=== PATIENT | male | born 1965 | race American Indian/Alaskan Native ===

== ENCOUNTER 2020-02-06 09:54 | Inpatient (IN) | payer OTHER ==
[2020-02-06] MEDS ORDERED: NALOXONE 2 MG/2 ML INJ ONE (09:59)
[2020-02-06] MEDS ORDERED: NALOXONE 2 MG/2 ML INJ IV ONE (09:59)
[2020-02-06] MEDS ORDERED: ONDANSETRON 4 MG/2 ML INJ IV ONE (10:00)
[2020-02-06] MEDS ORDERED: ONDANSETRON 4 MG/2 ML INJ ONE (10:01)
[2020-02-06] MEDS ORDERED: LORazepam 2 MG/ML VIAL IV ONE (10:04)
[2020-02-06] MEDS ORDERED: LORazepam 2 MG/ML VIAL ONE (10:04)
[2020-02-06] MEDS ORDERED: SODIUM CHLORIDE 0.9% 1000 ML 1,000 ML IV ONE (10:10)
[2020-02-06] MEDS ORDERED: NALOXONE 2 MG/2 ML 2 MG in SODIUM CHLORIDE 0.9% 500 ML 500 ML IV ONE (10:12)
--- NOTE | 2020-02-06 10:17 | Emergency Department Report ---
ED Altered Mental Status HPI - General Chief Complaint: Altered Mental Status Stated Complaint: UNRESPONSIVE Time Seen by Provider: 02/06/20 10:10 Source: EMS Mode of arrival: Stretcher Limitations: Altered Mental Status - History of Present Illness Initial Comments: Patient is unknown age, unknown past medical history. Patient brought to the emergency room via EMS from a crack house after his friend called and stated that he is not responding to them. EMS stated that upon arrival to the area patient found unresponsive and breathing approximately 3 breaths/min, unresponsive to voice or painful stimuli. EMS immediately start doing positive pressure ventilation and patient given 2 mg of Narcan IM immediately with little improvement. Upon arrival to the ER patient is obtunded and breathing approximately 5 breaths/min. Patient immediately given 2 mg of Narcan IV and patient immediately start working up and became more agitated. Patient given Ativan for sedation. Patient oxygen saturation improved to 96% on nonrebreather. Patient started on Narcan drip. MD Complaint: altered mental status, decreased responsiveness, intoxication -: unknown Severity: severe Context: drug abuse Treatments Prior to Arrival: IV fluid - Related Data Allergies Allergy/AdvReac Type Severity Reaction Status Date / Time No Known Allergies Allergy Verified 02/06/20 14:12 ED Review of Systems ROS: Stated complaint: UNRESPONSIVE Other details as noted in HPI Comment: Unobtainable due to pts medical conditions ED Past Medical Hx - Past Medical History Additional medical history: unknown - Surgical History Additional Surgical History: unknown - Social History Smoking Status: Unknown if ever smoked ED Physical Exam - General Limitations: Altered Mental Status General appearance: obtunded - Head Head exam: Present: atraumatic, normocephalic, normal inspection - Eye Pupils: Present: other (2 mm and reactive.) - ENT ENT exam: Present: mucous membranes dry - Neck Neck exam: Present: normal inspection - Respiratory Respiratory exam: Present: normal lung sounds bilaterally - Cardiovascular Cardiovascular Exam: Present: regular rate, normal rhythm, normal heart sounds - GI/Abdominal GI/Abdominal exam: Present: soft. Absent: distended, tenderness, guarding - Extremities Exam Extremities exam: Present: normal inspection, full ROM, normal capillary refill - Neurological Exam Neurological exam: Present: altered - Skin Skin exam: Present: warm, dry, intact ED Course Vital Signs 02/06/20 02/06/20 02/06/20 09:55 09:58 10:00 Temperature Pulse Rate 95 H 90 Respiratory 12 Rate Blood Pressure 133/87 133/87 O2 Sat by Pulse 87 93 Oximetry 02/06/20 02/06/20 02/06/20 10:16 10:18 10:30 Temperature 93.0 F L Pulse Rate 81 Respiratory 11 L Rate Blood Pressure 133/87 112/70 O2 Sat by Pulse 97 98 Oximetry 02/06/20 02/06/20 02/06/20 10:47 11:00 11:16 Temperature Pulse Rate 85 86 85 Respiratory 9 L 11 L 10 L Rate Blood Pressure 80/52 95/55 O2 Sat by Pulse 95 95 97 Oximetry 02/06/20 02/06/20 02/06/20 11:30 11:45 12:10 Temperature Pulse Rate 86 86 83 Respiratory 10 L 13 12 Rate Blood Pressure 87/58 95/62 95/62 O2 Sat by Pulse 98 97 Oximetry 02/06/20 02/06/20 02/06/20 12:16 12:30 12:45 Temperature 97.1 F L Pulse Rate 84 83 84 Respiratory 7 L 9 L 10 L Rate Blood Pressure 95/62 89/53 85/57 O2 Sat by Pulse 96 Oximetry 02/06/20 02/06/20 02/06/20 13:00 13:15 13:30 Temperature Pulse Rate 82 81 82 Respiratory 11 L 11 L 11 L Rate Blood Pressure 82/57 85/54 93/56 O2 Sat by Pulse 96 96 97 Oximetry 02/06/20 13:45 Temperature Pulse Rate 81 Respiratory 12 Rate Blood Pressure 84/55 O2 Sat by Pulse 99 Oximetry - Consultations Consultation #1: 02/06/20 14:34 I discussed the patient with Shi Calderon, with Dr. Green, churn tender. She stated that she is coming to evaluate the patient. 02/06/20 14:34 - Lab Data Result diagrams: 02/06/20 13:51 02/06/20 10:54 Lab Results 02/06/20 02/06/20 02/06/20 Range/Units 10:54 10:54 10:54 WBC 20.0 H (4.5-11.0) K/mm3 RBC 4.36 (3.65-5.03) M/mm3 Hgb 11.9 (11.8-15.2) gm/dl Hct 38.0 (35.5-45.6) % MCV 87 (84-94) fl MCH 27 L (28-32) pg MCHC 31 L (32-34) % RDW 24.8 H (13.2-15.2) % Plt Count 338 (140-440) K/mm3 Add Manual Diff Complete Total Counted 100 Seg Neutrophils % Turning Machine Operator Seg Neuts % (Manual) 87.0 H (40.0-70.0) % Band Neutrophils % 6.0 % Lymphocytes % (Manual) 2.0 L (13.4-35.0) % Reactive Lymphs % (Man) 0 % Monocytes % (Manual) 5.0 (0.0-7.3) % Eosinophils % (Manual) 0 (0.0-4.3) % Basophils % (Manual) 0 (0.0-1.8) % Metamyelocytes % 0 % Myelocytes % 0 % Promyelocytes % 0 % Blast Cells % 0 % Nucleated RBC % Not Reportable Seg Neutrophils # Man 17.4 H (1.8-7.7) K/mm3 Band Neutrophils # 1.2 K/mm3 Lymphocytes # (Manual) 0.4 L (1.2-5.4) K/mm3 Abs React Lymphs (Man) 0.0 K/mm3 Monocytes # (Manual) 1.0 H (0.0-0.8) K/mm3 Eosinophils # (Manual) 0.0 (0.0-0.4) K/mm3 Basophils # (Manual) 0.0 (0.0-0.1) K/mm3 Metamyelocytes # 0.0 K/mm3 Myelocytes # 0.0 K/mm3 Promyelocytes # 0.0 K/mm3 Blast Cells # 0.0 K/mm3 WBC Morphology Not Reportable Hypersegmented Neuts Not Reportable Hyposegmented Neuts Not Reportable Hypogranular Neuts Not Reportable Smudge Cells Not Reportable Toxic Granulation Not Reportable Toxic Vacuolation Not Reportable Dohle Bodies Not Reportable Pelger-Huet Anomaly Not Reportable Zakia Rods Not Reportable Platelet Estimate Consistent w auto Clumped Platelets Not Reportable Plt Clumps, EDTA Not Reportable Large Platelets Not Reportable Giant Platelets Not Reportable Platelet Satelliting Not Reportable Plt Morphology Comment Not Reportable RBC Morphology Not Reportable Dimorphic RBCs Not Reportable Polychromasia Not Reportable Hypochromasia Not Reportable Poikilocytosis Not Reportable Anisocytosis 2+ Microcytosis 1+ Macrocytosis Not Reportable Spherocytes Not Reportable Pappenheimer Bodies Not Reportable Sickle Cells Not Reportable Target Cells Not Reportable Tear Drop Cells Not Reportable Ovalocytes Not Reportable Helmet Cells Not Reportable [place] Bodies Not Reportable [place] Rings Not Reportable Caro Cells Not Reportable Bite Cells Not Reportable Crenated Cell Not Reportable Elliptocytes Not Reportable Acanthocytes (Spur) Not Reportable Rouleaux Not Reportable Hemoglobin C Crystals Not Reportable Schistocytes Not Reportable Malaria parasites Not Reportable Yevgeniy Bodies Not Reportable Hem Pathologist Commnt No APTT 30.3 (24.2-36.6) Sec. Sodium 139 (137-145) mmol/L Potassium 6.0 H (3.6-5.0) mmol/L Chloride 101.9 (98-107) mmol/L Carbon Dioxide 23 (22-30) mmol/L Anion Gap 20 mmol/L BUN 29 H (9-20) mg/dL Creatinine 1.3 (0.8-1.5) mg/dL Estimated GFR 49 ml/min BUN/Creatinine Ratio 22 % Glucose 95 (75-100) mg/dL Lactic Acid (0.7-2.0) mmol/L Calcium 8.4 (8.4-10.2) mg/dL Total Bilirubin 0.50 (0.1-1.2) mg/dL AST 244 H (5-40) units/L ALT 195 H (7-56) units/L Alkaline Phosphatase 90 (35-129) units/L Ammonia (25-60) umol/L Troponin T 0.156 H* (0.00-0.029) ng/mL Total Protein 7.1 (6.3-8.2) g/dL Albumin 3.8 L (3.9-5) g/dL Albumin/Globulin Ratio 1.2 % Triglycerides 40 (2-149) mg/dL Cholesterol 184 (50-199) mg/dL LDL Cholesterol Direct 105 (50-130) mg/dL HDL Cholesterol 85 H (40-59) mg/dL Cholesterol/HDL Ratio 2.16 % Salicylates (2.8-20.0) mg/dL Acetaminophen (10.0-30.0) ug/mL Plasma/Serum Alcohol (0-0.07) % 02/06/20 02/06/20 02/06/20 Range/Units 10:54 10:54 10:54 WBC (4.5-11.0) K/mm3 RBC (3.65-5.03) M/mm3 Hgb (11.8-15.2) gm/dl Hct (35.5-45.6) % MCV (84-94) fl MCH (28-32) pg MCHC (32-34) % RDW (13.2-15.2) % Plt Count (140-440) K/mm3 Add Manual Diff Total Counted Seg Neutrophils % Seg Neuts % (Manual) (40.0-70.0) % Band Neutrophils % % Lymphocytes % (Manual) (13.4-35.0) % Reactive Lymphs % (Man) % Monocytes % (Manual) (0.0-7.3) % Eosinophils % (Manual) (0.0-4.3) % Basophils % (Manual) (0.0-1.8) % Metamyelocytes % % Myelocytes % % Promyelocytes % % Blast Cells % % Nucleated RBC % Seg Neutrophils # Man (1.8-7.7) K/mm3 Band Neutrophils # K/mm3 Lymphocytes # (Manual) (1.2-5.4) K/mm3 Abs React Lymphs (Man) K/mm3 Monocytes # (Manual) (0.0-0.8) K/mm3 Eosinophils # (Manual) (0.0-0.4) K/mm3 Basophils # (Manual) (0.0-0.1) K/mm3 Metamyelocytes # K/mm3 Myelocytes # K/mm3 Promyelocytes # K/mm3 Blast Cells # K/mm3 WBC Morphology Hypersegmented Neuts Hyposegmented Neuts Hypogranular Neuts Smudge Cells Toxic Granulation Toxic Vacuolation Dohle Bodies Pelger-Huet Anomaly [place] Rods Platelet Estimate Clumped Platelets Plt Clumps, EDTA Large Platelets Giant Platelets Platelet Satelliting Plt Morphology Comment RBC Morphology Dimorphic RBCs Polychromasia Hypochromasia Poikilocytosis Anisocytosis Microcytosis Macrocytosis Spherocytes Pappenheimer Bodies Sickle Cells Target Cells Tear Drop Cells Ovalocytes Helmet Cells [place] Bodies [place] Rings [place] Cells Bite Cells Crenated Cell Elliptocytes Acanthocytes (Spur) Rouleaux Hemoglobin C Crystals Schistocytes Malaria parasites Yevgeniy Bodies Hem Pathologist Commnt APTT (24.2-36.6) Sec. Sodium (137-145) mmol/L Potassium (3.6-5.0) mmol/L Chloride (98-107) mmol/L Carbon Dioxide (22-30) mmol/L Anion Gap mmol/L BUN (9-20) mg/dL Creatinine (0.8-1.5) mg/dL Estimated GFR ml/min BUN/Creatinine Ratio % Glucose (75-100) mg/dL Lactic Acid 3.60 H* (0.7-2.0) mmol/L Calcium (8.4-10.2) mg/dL Total Bilirubin (0.1-1.2) mg/dL AST (5-40) units/L ALT (7-56) units/L Alkaline Phosphatase (35-129) units/L Ammonia 41.0 (25-60) umol/L Troponin T (0.00-0.029) ng/mL Total Protein (6.3-8.2) g/dL Albumin (3.9-5) g/dL Albumin/Globulin Ratio % Triglycerides (2-149) mg/dL Cholesterol (50-199) mg/dL LDL Cholesterol Direct (50-130) mg/dL HDL Cholesterol (40-59) mg/dL Cholesterol/HDL Ratio % Salicylates < 0.3 L (2.8-20.0) mg/dL Acetaminophen (10.0-30.0) ug/mL Plasma/Serum Alcohol (0-0.07) % 02/06/20 02/06/20 02/06/20 Range/Units 10:54 10:54 13:17 WBC (4.5-11.0) K/mm3 RBC (3.65-5.03) M/mm3 Hgb (11.8-15.2) gm/dl Hct (35.5-45.6) % MCV (84-94) fl MCH (28-32) pg MCHC (32-34) % RDW (13.2-15.2) % Plt Count (140-440) K/mm3 Add Manual Diff Total Counted Seg Neutrophils % Seg Neuts % (Manual) (40.0-70.0) % Band Neutrophils % % Lymphocytes % (Manual) (13.4-35.0) % Reactive Lymphs % (Man) % Monocytes % (Manual) (0.0-7.3) % Eosinophils % (Manual) (0.0-4.3) % Basophils % (Manual) (0.0-1.8) % Metamyelocytes % % Myelocytes % % Promyelocytes % % Blast Cells % % Nucleated RBC % Seg Neutrophils # Man (1.8-7.7) K/mm3 Band Neutrophils # K/mm3 Lymphocytes # (Manual) (1.2-5.4) K/mm3 Abs React Lymphs (Man) K/mm3 Monocytes # (Manual) (0.0-0.8) K/mm3 Eosinophils # (Manual) (0.0-0.4) K/mm3 Basophils # (Manual) (0.0-0.1) K/mm3 Metamyelocytes # K/mm3 Myelocytes # K/mm3 Promyelocytes # K/mm3 Blast Cells # K/mm3 WBC Morphology Hypersegmented Neuts Hyposegmented Neuts Hypogranular Neuts Smudge Cells Toxic Granulation Toxic Vacuolation Dohle Bodies Pelger-Huet Anomaly Zakia Rods Platelet Estimate Clumped Platelets Plt Clumps, EDTA Large Platelets Giant Platelets Platelet Satelliting Plt Morphology Comment RBC Morphology Dimorphic RBCs Polychromasia Hypochromasia Poikilocytosis Anisocytosis Microcytosis Macrocytosis Spherocytes Pappenheimer Bodies Sickle Cells Target Cells Tear Drop Cells Ovalocytes Helmet Cells [place] Bodies [place] Rings Caro Cells Bite Cells Crenated Cell Elliptocytes Acanthocytes (Spur) Rouleaux Hemoglobin C Crystals Schistocytes Malaria parasites Yevgeniy Bodies Hem Pathologist Commnt APTT (24.2-36.6) Sec. Sodium (137-145) mmol/L Potassium (3.6-5.0) mmol/L Chloride (98-107) mmol/L Carbon Dioxide (22-30) mmol/L Anion Gap mmol/L BUN (9-20) mg/dL Creatinine (0.8-1.5) mg/dL Estimated GFR ml/min BUN/Creatinine Ratio % Glucose (75-100) mg/dL Lactic Acid 1.00 (0.7-2.0) mmol/L Calcium (8.4-10.2) mg/dL Total Bilirubin (0.1-1.2) mg/dL AST (5-40) units/L ALT (7-56) units/L Alkaline Phosphatase (35-129) units/L Ammonia (25-60) umol/L Troponin T (0.00-0.029) ng/mL Total Protein (6.3-8.2) g/dL Albumin (3.9-5) g/dL Albumin/Globulin Ratio % Triglycerides (2-149) mg/dL Cholesterol (50-199) mg/dL LDL Cholesterol Direct (50-130) mg/dL HDL Cholesterol (40-59) mg/dL Cholesterol/HDL Ratio % Salicylates (2.8-20.0) mg/dL Acetaminophen < 5.0 L (10.0-30.0) ug/mL Plasma/Serum Alcohol < 0.01 (0-0.07) % 02/06/20 Range/Units 13:17 WBC (4.5-11.0) K/mm3 RBC (3.65-5.03) M/mm3 Hgb (11.8-15.2) gm/dl Hct (35.5-45.6) % MCV (84-94) fl MCH (28-32) pg MCHC (32-34) % RDW (13.2-15.2) % Plt Count (140-440) K/mm3 Add Manual Diff Total Counted Seg Neutrophils % Seg Neuts % (Manual) (40.0-70.0) % Band Neutrophils % % Lymphocytes % (Manual) (13.4-35.0) % Reactive Lymphs % (Man) % Monocytes % (Manual) (0.0-7.3) % Eosinophils % (Manual) (0.0-4.3) % Basophils % (Manual) (0.0-1.8) % Metamyelocytes % % Myelocytes % % Promyelocytes % % Blast Cells % % Nucleated RBC % Seg Neutrophils # Man (1.8-7.7) K/mm3 Band Neutrophils # K/mm3 Lymphocytes # (Manual) (1.2-5.4) K/mm3 Abs React Lymphs (Man) K/mm3 Monocytes # (Manual) (0.0-0.8) K/mm3 Eosinophils # (Manual) (0.0-0.4) K/mm3 Basophils # (Manual) (0.0-0.1) K/mm3 Metamyelocytes # K/mm3 Myelocytes # K/mm3 Promyelocytes # K/mm3 Blast Cells # K/mm3 WBC Morphology Hypersegmented Neuts Hyposegmented Neuts Hypogranular Neuts Smudge Cells Toxic Granulation Toxic Vacuolation Dohle Bodies Pelger-Huet Anomaly Zakia Rods Platelet Estimate Clumped Platelets Plt Clumps, EDTA Large Platelets Giant Platelets Platelet Satelliting Plt Morphology Comment RBC Morphology Dimorphic RBCs Polychromasia Hypochromasia Poikilocytosis Anisocytosis Microcytosis Macrocytosis Spherocytes Pappenheimer Bodies Sickle Cells Target Cells Tear Drop Cells Ovalocytes Helmet Cells [place] Bodies [place] Rings [place] Cells Bite Cells Crenated Cell Elliptocytes Acanthocytes (Spur) Rouleaux Hemoglobin C Crystals Schistocytes Malaria parasites Yevgeniy Bodies Hem Pathologist Commnt APTT (24.2-36.6) Sec. Sodium (137-145) mmol/L Potassium (3.6-5.0) mmol/L Chloride (98-107) mmol/L Carbon Dioxide (22-30) mmol/L Anion Gap mmol/L BUN (9-20) mg/dL Creatinine (0.8-1.5) mg/dL Estimated GFR ml/min BUN/Creatinine Ratio % Glucose (75-100) mg/dL Lactic Acid (0.7-2.0) mmol/L Calcium (8.4-10.2) mg/dL Total Bilirubin (0.1-1.2) mg/dL AST (5-40) units/L ALT (7-56) units/L Alkaline Phosphatase (35-129) units/L Ammonia (25-60) umol/L Troponin T 0.175 H* (0.00-0.029) ng/mL Total Protein (6.3-8.2) g/dL Albumin (3.9-5) g/dL Albumin/Globulin Ratio % Triglycerides (2-149) mg/dL Cholesterol (50-199) mg/dL LDL Cholesterol Direct (50-130) mg/dL HDL Cholesterol (40-59) mg/dL Cholesterol/HDL Ratio % Salicylates (2.8-20.0) mg/dL Acetaminophen (10.0-30.0) ug/mL Plasma/Serum Alcohol (0-0.07) % - EKG Data -: EKG Interpreted by Me EKG shows normal: sinus rhythm Rate: normal Interpretation: no acute changes - Radiology Data Radiology results: report reviewed - Medical Decision Making Patient is unknown age, unknown past medical history. Patient brought to the emergency room via EMS from a crack house after his friend called and stated that he is not responding to them. EMS stated that upon arrival to the area patient found unresponsive and breathing approximately 3 breaths/min, unrespons ranjit to voice or painful stimuli. EMS immediately start doing positive pressure ventilation and patient given 2 mg of Narcan IM immediately with little improvement. Upon arrival to the ER patient is obtunded and breathing approximately 5 breaths/min. Patient immediately given 2 mg of Narcan IV and patient immediately start working up and became more agitated. Patient given Ativan for sedation. Patient oxygen saturation improved to 96% on nonrebreather. Patient started on Narcan drip. Patient found to be hypothermic with temperature of 93. Bear hugger applied. Chest x-ray showed right lower lobe opacity possible pneumonia. Patient white blood cells is 20,000. Sepsis protocol initiated and patient received Zosyn and normal saline. Patient examined by me multiple times. Patient improved significantly and now he is alert and oriented and able to give his name and his date of and his medical history. I discussed the patient with Dr. Salgado, he agreed to admit the patient to medical service for further management. Critical Care Time: Yes Critical care time in (mins) excluding proc time.: 45 Critical care attestation.: If time is entered above; I have spent that time in minutes in the direct care of this critically ill patient, excluding procedure time. ED Disposition Clinical Impression: Sepsis, Altered mental status, Narcotic-induced respiratory depression, Non- STEMI (non-ST elevated myocardial infarction) Disposition: [id number] OP ADMIT IP TO THIS HOSP Is pt being admited?: Yes Condition: Stable
[2020-02-06 11:37] LABS: Hemoglobin 11.9 gm/dl (11.8-15.2); Mean Corpuscular HGB Conc 31 % (32-34); Mean Corpuscular Volume 87 fl (84-94); Platelet Count 338 K/mm3 (140-440); Red Blood Count 4.36 M/mm3 (3.65-5.03)
[2020-02-06 11:43] LABS: Red Cell Distribution Width 24.8 % (13.2-15.2)
[2020-02-06 11:58] LABS: Albumin 3.8 g/dL (3.9-5); Calcium 8.4 mg/dL (8.4-10.2)
[2020-02-06] MEDS ORDERED: ASPIRIN 81 MG TAB CHEW PO ONE (12:07)
--- NOTE | 2020-02-06 12:09 | XRay Report ---
CHEST 1 VIEW INDICATION: Altered Mental Status. COMPARISON: None. FINDINGS: Support devices: None. Heart: Within normal limits. Pulmonary vasculature: Normal. Lungs/Pleura: Subtle right basal linear opacities of uncertain significance. No pulmonary consolidati on. No pleural effusion. Additional findings: None. IMPRESSION: 1. Subtle right basal lung opacities of uncertain significance. This may be an early pneumonia or ate lectasis. Signer Name: Kalen Mclaughlin MD Signed: 02/06/2020 12:05 PM Workstation Name: [id number]
[2020-02-06] MEDS ORDERED: SODIUM CHLORIDE 0.9% 1000 ML IV SOLN IV ONE (12:14)
[2020-02-06] MEDS ORDERED: PIPERACILLIN/TAZOBACTAM 3.375 3.375 GM/50 ML BAG IV ONE (12:15)
--- NOTE | 2020-02-06 12:18 | Cat Scan Report ---
CT HEAD WITHOUT CONTRAST INDICATION / CLINICAL INFORMATION: Altered Mental Status. TECHNIQUE: All CT scans at this location are performed using CT dose reduction for ALARA by means of automated e xposure control. COMPARISON: None available. FINDINGS: HEMORRHAGE: No evidence of intracranial hemorrhage or extra-axial fluid collection. EXTRA-AXIAL SPACES: Cortical sulci, sylvian fissures and basilar cisterns have an unremarkable appear ance. VENTRICULAR SYSTEM: The ventricular system is of normal size and configuration. CEREBRAL PARENCHYMA: No areas of abnormal brain parenchymal attenuation are identified. There is no i ndication of recent infarction. MIDLINE SHIFT OR HERNIATION: There is no mass effect. CEREBELLUM / BRAINSTEM: Brainstem and cerebellum have an unremarkable appearance. INTRACRANIAL VESSELS:No abnormalities are identified on this noncontrast head CT. ORBITS: visualized portions of the orbits have an unremarkable appearance. SOFT TISSUES of HEAD: No significant abnormality. CALVARIUM: Evaluation of bone windows reveals no abnormalities. PARANASAL SINUSES / MASTOID AIR CELLS: Paranasal sinuses are free from inflammatory mucosal disease. Mastoid air cells are normally pneumatized. ADDITIONAL FINDINGS: None. IMPRESSION: 1. No acute intracranial abnormality. Signer Name: Kalen Mclaughlin MD Signed: 02/06/2020 12:14 PM Workstation Name: [id number]
[2020-02-06 12:38] LABS: Chol/HDL Ratio 2.16 %
[2020-02-06 13:36] LABS: Anisocytosis 2+; Band Neutrophils # (Manual) 1.2 K/mm3; Basophils % (Manual) 0 % (0.0-1.8); Eosinophils % (Manual) 0 % (0.0-4.3); Total Cells Counted 100
[2020-02-06 13:37] LABS: Platelet Estimate Consistent w Auto
[2020-02-06 14:02] LABS: Hematocrit 34.6 % (35.5-45.6); Hemoglobin 10.9 gm/dl (11.8-15.2)
[2020-02-06 14:15] LABS: INR 1.14 (0.87-1.13)
--- NOTE | 2020-02-06 14:52 | Consultation ---
History of Present Illness Consult date: 02/06/20 Requesting physician: DUNG CALVILLO Consult reason: elevated troponin History of present illness: The patient is a 54 YO male with no reported significant past medical history. He is previously unknown to our practice. He was brought to the emergency room via EMS from a "crack house" after his friend called and stated that he was not responding to them. EMS stated that upon arrival to the area patient found unres ponsive and breathing approximately 3 breaths/min, unresponsive to voice or painful stimuli. EMS immediately start doing positive pressure ventilation and patient given 2 mg of Narcan IM immediately with little improvement. Upon arrival to the ER patient is obtunded and breathing approximately 5 breaths/min. Patient immediately given 2 mg of Narcan IV and patient immediately start working up and became more agitated. Patient given Ativan for sedation. Patient oxygen saturation improved to 96% on nonrebreather. Patient started on Narcan drip. On evaluation, pt is sleeping but easily awakened. He appears confused when awakened - does not know where he is or why he was brought to the hospital. He denies any current complaints, including chest pain or SOB. He denies any known prior cardiac issues or cardiac w/u. He was noted to have elevated troponin and thus cardiology has been consulted. Labwork significant for leukocytosis, lactic acidosis, hyperkalemia. Head CT with NAF. CXR with ? RLL early PNA. Medications and Allergies Allergies Allergy/AdvReac Type Severity Reaction Status Date / Time No Known Allergies Allergy Verified 02/06/20 14:12 Active Meds: Active Medications Naloxone HCl 2 mg/ Sodium (Chloride) 502 mls @ 100.4 mls/hr IV DIRECT ONE; Protocol Stop: 02/06/20 15:11 Last Admin: 02/06/20 10:46 Dose: 0.4 mg/hr, 100.4 mls/hr Documented by: Review of Systems ROS unobtainable: due to mental status (no current complaints, pt confused) Physical Examination Vital Signs Pulse BP 95 H 133/87 02/06/20 09:55 02/06/20 09:55 General appearance: no acute distress HEENT: Positive: PERRL, Normocephaly, Mucus Membranes Moist Neck: Positive: neck supple, trachea midline Cardiac: Positive: Reg Rate and Rhythm, S1/S2 Lungs: Positive: Decreased Breath Sounds Neuro: Positive: Other (confused) Abdomen: Negative: Tender Skin: Negative: Rash Musculoskeletal: No Pain Extremities: Absent: edema Results 02/06/20 13:51 02/06/20 10:54 Cardiac Enzymes 02/06/20 Range/Units 10:54 AST 244 H (5-40) units/L Coagulation 02/06/20 02/06/20 Range/Units 10:54 13:51 PT 14.8 (12.2-14.9) Sec. INR 1.14 H (0.87-1.13) APTT 30.3 (24.2-36.6) Sec. Lipids 02/06/20 Range/Units 10:54 Triglycerides 40 (2-149) mg/dL Cholesterol 184 (50-199) mg/dL HDL Cholesterol 85 H (40-59) mg/dL Cholesterol/HDL Ratio 2.16 % CBC 02/06/20 02/06/20 Range/Units 10:54 13:51 WBC 20.0 H (4.5-11.0) K/mm3 RBC 4.36 (3.65-5.03) M/mm3 Hgb 11.9 10.9 L (11.8-15.2) gm/dl Hct 38.0 34.6 L (35.5-45.6) % Plt Count 338 302 (140-440) K/mm3 Comprehensive Metabolic Panel 02/06/20 Range/Units 10:54 Sodium 139 (137-145) mmol/L Potassium 6.0 H (3.6-5.0) mmol/L Chloride 101.9 (98-107) mmol/L Carbon Dioxide 23 (22-30) mmol/L BUN 29 H (9-20) mg/dL Creatinine 1.3 (0.8-1.5) mg/dL Glucose 95 (75-100) mg/dL Calcium 8.4 (8.4-10.2) mg/dL AST 244 H (5-40) units/L ALT 195 H (7-56) units/L Alkaline Phosphatase 90 (35-129) units/L Total Protein 7.1 (6.3-8.2) g/dL Albumin 3.8 L (3.9-5) g/dL - Imaging and Cardiology Echo: pending EKG: report reviewed, image reviewed EKG interpretations - Telemetry EKG Rhythm: Sinus Rhythm - EKG Sinus rhythms and dysrhythmias: sinus rhythm Assessment and Plan Agree with heparin gtt, initiate ASA. Cont to trend Lee and f/u ECG in AM. No BB at this time in setting of hypotension. No statin at this time in setting of elevated LFTs. Obtain echo. Plan for stress test once mental status improves. Management of ? sepsis and ? RLL PNA per primary team. Blood cultures pending. Further recs to follow per hospital course. The patient has been seen in conjunction with Dr. Green who agrees with the assessment and plan of care. - Patient Problems (1) NSTEMI (non-ST elevated myocardial infarction) Current Visit: Yes Status: Acute (2) Altered mental status Current Visit: Yes Status: Acute (3) Illicit drug use Current Visit: Yes Status: Acute (4) Narcotic-induced respiratory depression Current Visit: Yes Status: Acute (5) Sepsis Current Visit: Yes Status: Suspected (6) Lactic acidosis Current Visit: Yes Status: Acute (7) Transaminitis Current Visit: Yes Status: Acute (8) Hyperkalemia Current Visit: Yes Status: Acute
[2020-02-06 14:56] LABS: Partial Thromboplastin Time 31.9 Sec. (24.2-36.6)
[2020-02-06] MEDS ORDERED: HEPARIN 10,000 UNITS/10 ML VIAL IV ONE (14:58)
[2020-02-06 15:29] LABS: Bacteria,Urine 1+ /HPF (Negative); Bilirubin,Urine NEG (Negative); Blood,Urine SM (Negative); Color,Urine Yellow (Yellow); Mucus,Urine FEW /HPF; Sperm,Urine FEW /HPF (NP); Urobilinogen,Urine < 2.0 mg/dL (<2.0)
[2020-02-06 15:31] LABS: Amphetamine Screen,Urine PRESUMPTIVE NEGATIVE; Benzodiazepines Screen,Urine PRESUMPTIVE NEGATIVE; Cannabinoid Screen,Urine PRESUMPTIVE NEGATIVE; Methadone Screen,Urine PRESUMPTIVE NEGATIVE; Opiate Screen,Urine PRESUMPTIVE NEGATIVE
[2020-02-06 15:44] LABS: Cocaine Screen,Urine PRESUMPTIVE POSITIVE
[2020-02-06] MEDS ORDERED: HEPARIN/ 0.45% NACL DRIP 25,000 UNIT/500 ML BAG ONE (15:46)
[2020-02-06] MEDS ORDERED: HEPARIN 10,000 UNITS/10 ML VIAL ONE (15:47)
[2020-02-06] MEDS: HEPARIN/ 0.45% NACL DRIP 25,000 UNIT/500 ML BAG IV SCH (15:48)
--- NOTE | 2020-02-06 22:58 | History and Physical Report ---
History of Present Illness Date of examination: 02/06/20 Date of admission: 02/06/20 13:31 Chief complaint: AMS and near apneic few hours History of present illness: 54-year-old male with unknown past medical history brought in by EMS [place] [facility] after being called by a friend. Patient was breathing 3 times a minute and was unresponsive. Patient was put on BiPAP and was given 2 mg of Narcan on the field with little improvement. Patient was obtunded and breathing approximately 5 breaths/min in the emergency room. 2 mg of Narcan was given again and patient started waking up and breathing better. Patient's oxygen saturation improved to 96% on nonrebreather. Patient was started on Narcan drip in the emergency room. Patient is severely obtunded and lethargic and decreased responsiveness. No chest pain pmh Unknown psh Unknown FH Unknown SH Cocaine on a regular basis Review of Systems Constitutional: no fever, no chills, no weight loss Ears, eyes, nose, mouth and throat: no nasal congestion, no nasal discharge, no sinus pressure, no vision change, no red eye. Neck: No neck pain or rigidity. Cardiovascular: No chest pain, no orthopnea, no palpitations, no leg swelling Respiratory: No shortness of breath, no cough, no congestion, no wheezing Gastrointestinal: no abdominal pain, no nausea, no vomiting Genitourinary : no dysuria, no hematuria Musculoskeletal: no joint swelling or muscle ache Integumentary: no rash, no pruritis Neurological: Decreased responsiveness Endocrine: no cold or heat intolerance, no polyuria or polydipsia Hematologic/Lymphatic: no easy bruising, no easy bleeding, no gland swelling Allergic/Immunologic: no urticaria, no angioedema. Medications and Allergies Allergies Allergy/AdvReac Type Severity Reaction Status Date / Time No Known Allergies Allergy Verified 02/06/20 14:12 Home Medications Medication Instructions Recorded Confirmed Last Taken Type No Known Home Medications [No 02/07/20 02/07/20 Unknown History Reported Home Medications] Active Meds: Active Medications Aspirin (Aspirin) 325 mg PO QDAY PENDING SALE TO [facility] Heparin Sodium/Sodium Chloride (Heparin/ 0.45% Nacl-25,000 Unit/500 Ml) 25,000 unit in 500 mls @ 18 mls/hr IV TITRATE ROBERTO; Protocol Last Admin: 02/06/20 15:48 Dose: 900 units/hr, 18 mls/hr Documented by: Exam - Constitutional Vitals: Temp Pulse Resp BP Pulse Ox 97.7 F 64 18 98/65 97 02/06/20 19:35 02/06/20 19:35 02/06/20 19:35 02/06/20 19:35 02/06/20 19:35 General appearance: Present: no acute distress, well-nourished - EENT Eyes: Present: PERRL ENT: hearing intact, clear oral mucosa - Neck Neck: Present: supple, normal ROM - Respiratory Respiratory effort: normal Respiratory: bilateral: CTA - Cardiovascular Heart rate: 78 Rhythm: regular Heart Sounds: Present: S1 & S2. Absent: rub, click - Extremities Extremities: no ischemia, pulses symmetrical, No edema Peripheral Pulses: within normal limits - Abdominal General gastrointestinal: Present: soft, non-tender, non-distended, normal bowel sounds Male genitourinary: Present: normal - Integumentary Integumentary: Present: clear, warm, dry - Musculoskeletal Musculoskeletal: generalized weakness - Psychiatric Psychiatric: appropriate mood/affect, intact judgment & insight - Neurologic Neurologic: CNII-XII intact, moves all extremities, other (Decreased responsiveness) Results - Labs CBC & Chem 7: 02/06/20 13:51 02/06/20 10:54 Labs: Laboratory Last Values WBC 20.0 K/mm3 (4.5-11.0) H 02/06/20 10:54 RBC 4.36 M/mm3 (3.65-5.03) 02/06/20 10:54 Hgb 10.9 gm/dl (11.8-15.2) L 02/06/20 13:51 Hct 34.6 % (35.5-45.6) L 02/06/20 13:51 MCV 87 fl (84-94) 02/06/20 10:54 MCH 27 pg (28-32) L 02/06/20 10:54 MCHC 31 % (32-34) L 02/06/20 10:54 RDW 24.8 % (13.2-15.2) H 02/06/20 10:54 Plt Count 302 K/mm3 (140-440) 02/06/20 13:51 Add Manual Diff Complete 02/06/20 10:54 Total Counted 100 02/06/20 10:54 Seg Neutrophils % Seed Expert 02/06/20 10:54 Seg Neuts % (Manual) 87.0 % (40.0-70.0) H 02/06/20 10:54 Band Neutrophils % 6.0 % 02/06/20 10:54 Lymphocytes % (Manual) 2.0 % (13.4-35.0) L 02/06/20 10:54 Reactive Lymphs % (Man) 0 % 02/06/20 10:54 Monocytes % (Manual) 5.0 % (0.0-7.3) 02/06/20 10:54 Eosinophils % (Manual) 0 % (0.0-4.3) 02/06/20 10:54 Basophils % (Manual) 0 % (0.0-1.8) 02/06/20 10:54 Metamyelocytes % 0 % 02/06/20 10:54 Myelocytes % 0 % 02/06/20 10:54 Promyelocytes % 0 % 02/06/20 10:54 Blast Cells % 0 % 02/06/20 10:54 Nucleated RBC % Not Reportable 02/06/20 10:54 Seg Neutrophils # Man 17.4 K/mm3 (1.8-7.7) H 02/06/20 10:54 Band Neutrophils # 1.2 K/mm3 02/06/20 10:54 Lymphocytes # (Manual) 0.4 K/mm3 (1.2-5.4) L 02/06/20 10:54 Abs React Lymphs (Man) 0.0 K/mm3 02/06/20 10:54 Monocytes # (Manual) 1.0 K/mm3 (0.0-0.8) H 02/06/20 10:54 Eosinophils # (Manual) 0.0 K/mm3 (0.0-0.4) 02/06/20 10:54 Basophils # (Manual) 0.0 K/mm3 (0.0-0.1) 02/06/20 10:54 Metamyelocytes # 0.0 K/mm3 02/06/20 10:54 Myelocytes # 0.0 K/mm3 02/06/20 10:54 Promyelocytes # 0.0 K/mm3 02/06/20 10:54 Blast Cells # 0.0 K/mm3 02/06/20 10:54 WBC Morphology Not Reportable 02/06/20 10:54 Hypersegmented Neuts Not Reportable 02/06/20 10:54 Hyposegmented Neuts Not Reportable 02/06/20 10:54 Hypogranular Neuts Not Reportable 02/06/20 10:54 Smudge Cells Not Reportable 02/06/20 10:54 Toxic Granulation Not Reportable 02/06/20 10:54 Toxic Vacuolation Not Reportable 02/06/20 10:54 Dohle Bodies Not Reportable 02/06/20 10:54 Pelger-Huet Anomaly Not Reportable 02/06/20 10:54 Zakia Rods Not Reportable 02/06/20 10:54 Platelet Estimate Consistent w auto 02/06/20 10:54 Clumped Platelets Not Reportable 02/06/20 10:54 Plt Clumps, EDTA Not Reportable 02/06/20 10:54 Large Platelets Not Reportable 02/06/20 10:54 Giant Platelets Not Reportable 02/06/20 10:54 Platelet Satelliting Not Reportable 02/06/20 10:54 Plt Morphology Comment Not Reportable 02/06/20 10:54 RBC Morphology Not Reportable 02/06/20 10:54 Dimorphic RBCs Not Reportable 02/06/20 10:54 Polychromasia Not Reportable 02/06/20 10:54 Hypochromasia Not Reportable 02/06/20 10:54 Poikilocytosis Not Reportable 02/06/20 10:54 Anisocytosis 2+ 02/06/20 10:54 Microcytosis 1+ 02/06/20 10:54 Macrocytosis Not Reportable 02/06/20 10:54 Spherocytes Not Reportable 02/06/20 10:54 Pappenheimer Bodies Not Reportable 02/06/20 10:54 Sickle Cells Not Reportable 02/06/20 10:54 Target Cells Not Reportable 02/06/20 10:54 Tear Drop Cells Not Reportable 02/06/20 10:54 Ovalocytes Not Reportable 02/06/20 10:54 Helmet Cells Not Reportable 02/06/20 10:54 [place] Bodies Not Reportable 02/06/20 10:54 [place] Rings Not Reportable 02/06/20 10:54 Felda Cells Not Reportable 02/06/20 10:54 Bite Cells Not Reportable 02/06/20 10:54 Crenated Cell Not Reportable 02/06/20 10:54 Elliptocytes Not Reportable 02/06/20 10:54 Acanthocytes (Spur) Not Reportable 02/06/20 10:54 Rouleaux Not Reportable 02/06/20 10:54 Hemoglobin C Crystals Not Reportable 02/06/20 10:54 Schistocytes Not Reportable 02/06/20 10:54 Malaria parasites Not Reportable 02/06/20 10:54 Yevgeniy Bodies Not Reportable 02/06/20 10:54 Hem Pathologist Commnt No 02/06/20 10:54 PT 14.8 Sec. (12.2-14.9) 02/06/20 13:51 INR 1.14 (0.87-1.13) H 02/06/20 13:51 APTT 31.9 Sec. (24.2-36.6) 02/06/20 13:51 Sodium 139 mmol/L (137-145) 02/06/20 10:54 Potassium 6.0 mmol/L (3.6-5.0) H 02/06/20 10:54 Chloride 101.9 mmol/L (98-107) 02/06/20 10:54 Carbon Dioxide 23 mmol/L (22-30) 02/06/20 10:54 Anion Gap 20 mmol/L 02/06/20 10:54 BUN 29 mg/dL (9-20) H 02/06/20 10:54 Creatinine 1.3 mg/dL (0.8-1.5) 02/06/20 10:54 Estimated GFR 49 ml/min 02/06/20 10:54 BUN/Creatinine Ratio 22 % 02/06/20 10:54 Glucose 95 mg/dL (75-100) 02/06/20 10:54 Lactic Acid 0.80 mmol/L (0.7-2.0) 02/06/20 15:40 Calcium 8.4 mg/dL (8.4-10.2) 02/06/20 10:54 Total Bilirubin 0.50 mg/dL (0.1-1.2) 02/06/20 10:54 AST 244 units/L (5-40) H 02/06/20 10:54 ALT 195 units/L (7-56) H 02/06/20 10:54 Alkaline Phosphatase 90 units/L (35-129) 02/06/20 10:54 Ammonia 41.0 umol/L (25-60) 02/06/20 10:54 Troponin T 0.175 ng/mL (0.00-0.029) H* 02/06/20 13:17 Total Protein 7.1 g/dL (6.3-8.2) 02/06/20 10:54 Albumin 3.8 g/dL (3.9-5) L 02/06/20 10:54 Albumin/Globulin Ratio 1.2 % 02/06/20 10:54 Triglycerides 40 mg/dL (2-149) 02/06/20 10:54 Cholesterol 184 mg/dL (50-199) 02/06/20 10:54 LDL Cholesterol Direct 105 mg/dL (50-130) 02/06/20 10:54 HDL Cholesterol 85 mg/dL (40-59) H 02/06/20 10:54 Cholesterol/HDL Ratio 2.16 % 02/06/20 10:54 Urine Color Yellow (Yellow) 02/06/20 14:47 Urine Turbidity Clear (Clear) 02/06/20 14:47 Urine pH 5.0 (5.0-7.0) 02/06/20 14:47 Ur Specific [place] 1.011 (1.003-1.030) 02/06/20 14:47 Urine Protein 30 mg/dl mg/dL (Negative) 02/06/20 14:47 Urine Glucose (UA) Neg mg/dL (Negative) 02/06/20 14:47 Urine Ketones Neg mg/dL (Negative) 02/06/20 14:47 Urine Blood Sm (Negative) 02/06/20 14:47 Urine Nitrite Neg (Negative) 02/06/20 14:47 Urine Bilirubin Neg (Negative) 02/06/20 14:47 Urine Urobilinogen < 2.0 mg/dL (<2.0) 02/06/20 14:47 Ur Leukocyte Esterase Neg (Negative) 02/06/20 14:47 Urine WBC (Auto) 3.0 /HPF (0.0-6.0) 02/06/20 14:47 Urine RBC (Auto) 2.0 /HPF (0.0-6.0) 02/06/20 14:47 U Epithel Cells (Auto) < 1.0 /HPF (0-13.0) 02/06/20 14:47 Urine Bacteria (Auto) 1+ /HPF (Negative) 02/06/20 14:47 Urine Mucus Few /HPF 02/06/20 14:47 Urine Sperm Few /HPF (BOTTOMER OPERATOR) 02/06/20 14:47 Salicylates < 0.3 mg/dL (2.8-20.0) L 02/06/20 10:54 Urine Opiates Screen Presumptive negative 02/06/20 14:47 Urine Methadone Screen Presumptive negative 02/06/20 14:47 Acetaminophen < 5.0 ug/mL (10.0-30.0) L 02/06/20 10:54 Ur Barbiturates Screen Presumptive negative 02/06/20 14:47 Ur Phencyclidine Scrn Presumptive negative 02/06/20 14:47 Ur Amphetamines Screen Presumptive negative 02/06/20 14:47 U Benzodiazepines Scrn Presumptive negative 02/06/20 14:47 Urine Cocaine Screen Presumptive positive 02/06/20 14:47 U Marijuana (THC) Screen Presumptive negative 02/06/20 14:47 Drugs of Abuse Note Disclamer 02/06/20 14:47 Plasma/Serum Alcohol < 0.01 % (0-0.07) 02/06/20 10:54 Microbiology: Microbiology 02/06/20 Unknown Peripheral/Venous Blood Culture - Preliminary Culture in Progress 02/06/20 Unknown Peripheral/Venous Blood Culture - Preliminary Culture in Progress - Imaging and Cardiology EKG: report reviewed Chest x-ray: report reviewed Imaging and Cardiology: CXR 1. Subtle right basal lung opacities of uncertain significance. This may be an early pneumonia or atelectasis. Sanchez/IV: IV Catheter Type [Left Forearm INT / Saline Lock ] Assessment and Plan Advance Directives: Yes (Full code) VTE prophylaxis?: Chemical Plan of care discussed with patient/family: Yes - Patient Problems (1) NSTEMI (non-ST elevated myocardial infarction) Current Visit: Yes Status: Acute Plan to address problem: Elevated troponin Possible sec to cocaine induced vasospasm IV Heparin dripinitiated Cardiology consult (2) Hyperkalemia Current Visit: Yes Status: Acute Plan to address problem: Treaed in ED Recheck K level (3) Aspiration pneumonia Current Visit: Yes Status: Acute Plan to address problem: Early pneumonia Possible aspiration No exposure COVID unlikely No isolation at this point Wear \mask as precaution IV Cefepime and Vancomycin IV May explain leukocytosis and elevated Lactic acid (4) Encephalopathy acute Current Visit: Yes Status: Acute Plan to address problem: Sec to Cocaine IV fdluids CIWA protocol for withdrawal MH consult (5) Cocaine dependence Current Visit: Yes Status: Chronic Qualifiers: Substance use status: with intoxication Plan to address problem: To be counselled MH consult (6) DVT prophylaxis Current Visit: Yes Status: Acute Plan to address problem: On Heparin and GI prophylaxis
[2020-02-06] MEDS ORDERED: ACETAMINOPHEN 325 MG TAB PO PRN (22:59)
[2020-02-06] MEDS ORDERED: METOCLOPRAMIDE 10 MG/2 ML INJ IV PRN (22:59)
[2020-02-06] MEDS ORDERED: ONDANSETRON 4 MG/2 ML INJ IV PRN (22:59)
[2020-02-06] MEDS ORDERED: LORazepam 2 MG/ML VIAL IV PRN ×2 (23:00)
[2020-02-07] MEDS: D5W/0.9% NACL 1,000 ML IV SCH ×2 (03:09→18:23)
[2020-02-07] MEDS ORDERED: SODIUM BICARB 8.4% 50 MEQ/50 ML SYRINGE IV NR (07:32)
[2020-02-07 07:52] LABS: Hematocrit 33.5 % (35.5-45.6); Hemoglobin 10.5 gm/dl (11.8-15.2); Mean Corpuscular HGB Conc 31 % (32-34); Mean Corpuscular Volume 87 fl (84-94); Platelet Count 271 K/mm3 (140-440); Red Blood Count 3.84 M/mm3 (3.65-5.03)
[2020-02-07 07:58] LABS: Red Cell Distribution Width 24.3 % (13.2-15.2)
[2020-02-07] MEDS ORDERED: VANCOMYCIN PHARMACY TO DOSE IV SCH (08:00)
[2020-02-07] MEDS ORDERED: CEFEPIME/NS 2 GM/100 ML 2 GM/100 ML BAG IV SCH (08:00)
[2020-02-07 08:19] LABS: Alanine Aminotransferase 101 units/L (7-56); BUN/Creatinine Ratio 19; Blood Urea Nitrogen 19 mg/dL (9-20); Hemolysis Index 5
[2020-02-07] MEDS ORDERED: CALCIUM GLUCONATE 2,000 MG in SODIUM CHLORIDE 0.9% 100 ML IV NR (09:00)
[2020-02-07] MEDS ORDERED: VANCOMYCIN 1,500 MG in SODIUM CHLORIDE 0.9% 500 ML 500 ML IV ONE (09:00)
[2020-02-07] MEDS ORDERED: ASPIRIN 325 MG TAB PO SCH (10:00)
--- NOTE | 2020-02-07 10:10 | Progress Note ---
Assessment and Plan Lee trending downwards. Cont heparin gtt for 48Hr. Pt reports h/o gastric ulcer - decrease ASA to 81mg daily. No BB at this time in setting of hypotension. No statin at this time in setting of elevated LFTs. Await echo. Plan for lexiscan MPI stress test in AM. NPO after MN. Management of ? sepsis and ? RLL PNA per primary team. Blood cultures pending. Further recs to follow per hospital course. The patient has been seen in conjunction with Dr. Green who agrees with the assessment and plan of care. - Patient Problems (1) NSTEMI (non-ST elevated myocardial infarction) Current Visit: Yes Status: Acute (2) Altered mental status Current Visit: Yes Status: Acute (3) Cocaine use Current Visit: Yes Status: Acute (4) Narcotic-induced respiratory depression Current Visit: Yes Status: Acute (5) Sepsis Current Visit: Yes Status: Suspected (6) Lactic acidosis Current Visit: Yes Status: Acute (7) Transaminitis Current Visit: Yes Status: Acute (8) History of gastric ulcer Current Visit: Yes Status: Chronic Subjective Date of service: 02/07/20 Principal diagnosis: AMS; NSTEMI Interval history: pt resting in bed, alert, no current complaints. he is still confused as to why he is hospitalized. heparin gtt infusing. in SR on tele. Objective Last Vital Signs Temp 98.3 F 02/07/20 04:01 Pulse 63 02/07/20 04:01 Resp 18 02/07/20 04:01 BP 83/53 02/07/20 04:01 Pulse Ox 95 02/07/20 04:01 - Physical Examination General: No Apparent Distress HEENT: Positive: PERRL, Normocephaly, Mucus Membranes Moist Neck: Positive: neck supple, trachea midline Cardiac: Positive: Reg Rate and Rhythm, S1/S2 Lungs: Positive: Decreased Breath Sounds Neuro: Positive: Grossly Intact Abdomen: Negative: Tender Skin: Negative: Rash Musculoskeletal: No Pain Extremities: Absent: edema - Labs and Meds Cardiac Enzymes 02/06/20 02/07/20 Range/Units 10:54 07:28 AST 244 H 60 H (5-40) units/L Coagulation 02/06/20 02/06/20 Range/Units 10:54 13:51 PT 14.8 (12.2-14.9) Sec. INR 1.14 H (0.87-1.13) APTT 30.3 31.9 (24.2-36.6) Sec. Lipids 02/06/20 Range/Units 10:54 Triglycerides 40 (2-149) mg/dL Cholesterol 184 (50-199) mg/dL HDL Cholesterol 85 H (40-59) mg/dL Cholesterol/HDL Ratio 2.16 % CBC 02/06/20 02/06/20 02/07/20 Range/Units 10:54 13:51 07:28 WBC 20.0 H 7.4 (4.5-11.0) K/mm3 RBC 4.36 3.84 (3.65-5.03) M/mm3 Hgb 11.9 10.9 L 10.5 L (11.8-15.2) gm/dl Hct 38.0 34.6 L 33.5 L (35.5-45.6) % Plt Count 338 302 271 (140-440) K/mm3 Comprehensive Metabolic Panel 02/06/20 02/07/20 Range/Units 10:54 07:28 Sodium 139 137 (137-145) mmol/L Potassium 6.0 H 4.0 D (3.6-5.0) mmol/L Chloride 101.9 104.6 (98-107) mmol/L Carbon Dioxide 23 22 (22-30) mmol/L BUN 29 H 19 (9-20) mg/dL Creatinine 1.3 1.0 (0.8-1.5) mg/dL Glucose 95 85 (75-100) mg/dL Calcium 8.4 8.0 L (8.4-10.2) mg/dL AST 244 H 60 H (5-40) units/L ALT 195 H 101 H (7-56) units/L Alkaline Phosphatase 90 65 (35-129) units/L Total Protein 7.1 5.6 L D (6.3-8.2) g/dL Albumin 3.8 L 3.0 L (3.9-5) g/dL - Imaging and Cardiology EKG: report reviewed Echo: pending - Telemetry EKG Rhythm: Sinus Rhythm - EKG Sinus rhythms and dysrhythmias: sinus rhythm
[2020-02-07] MEDS: HEPARIN/ 0.45% NACL DRIP 25,000 UNIT/500 ML BAG IV SCH ×3 (10:45→18:26)
[2020-02-07] MEDS: FAMOTIDINE 20 MG/2 ML INJ IV SCH ×2 (10:48→21:37)
[2020-02-07] MEDS: CEFEPIME/NS 2 GM/100 ML 2 GM/100 ML BAG IV SCH ×2 (10:54→21:37)
[2020-02-07 11:55] LABS: Basophils % (Manual) 0 % (0.0-1.8); Eosinophils % (Manual) 0 % (0.0-4.3); Total Cells Counted 100
[2020-02-07 11:56] LABS: Anisocytosis 2+; Hypochromasia Few; Platelet Estimate Consistent w Auto
--- NOTE | 2020-02-07 13:19 | Progress Note ---
Assessment and Plan Assessment and plan: NSTEMI (non-ST elevated myocardial infarction) Elevated troponin Possible sec to cocaine induced vasospasm IV Heparin drip Cardiology consulted, following Hyperkalemia Now resolved Treated in ED Recheck K level Aspiration pneumonia Early pneumonia Possible aspiration IV Cefepime and Vancomycin IV May explain leukocytosis and elevated Lactic acid Acute metabolic Encephalopathy Sec to Cocaine IV fdluids CIWA protocol for withdrawal consult Cocaine dependence To be counselled consult DVT prophylaxis On Heparin and GI prophylaxis History Interval history: Altered mental status Apnea episodes Hospitalist Physical - Physical exam Narrative exam: GEN: Not in acute distress, lying in bed, HEENT: Normocephalic, atraumatic, Neck: supple, No JVD Lungs: Rales right base, no wheeze, heart;S1 and S2 reg, no murmurs, rubs or gallop Abd:soft, non tender, non distended, normal bowel sounds Ext: No edema, no clubbing, no cyanosis, Neuro: Awake, alert, oriented x 3, no focal signs - Constitutional Vitals: Temp Pulse Resp BP Pulse Ox 98.7 F 63 16 97/63 92 02/07/20 11:02 02/07/20 11:02 02/07/20 11:02 02/07/20 11:02 02/07/20 11:02 General appearance: Present: no acute distress, well-nourished Results - Labs CBC & Chem 7: 02/07/20 07:28 02/07/20 07:28 Labs: Laboratory Last Values WBC 7.4 K/mm3 (4.5-11.0) 02/07/20 07:28 RBC 3.84 M/mm3 (3.65-5.03) 02/07/20 07:28 Hgb 10.5 gm/dl (11.8-15.2) L 02/07/20 07:28 Hct 33.5 % (35.5-45.6) L 02/07/20 07:28 MCV 87 fl (84-94) 02/07/20 07:28 MCH 27 pg (28-32) L 02/07/20 07:28 MCHC 31 % (32-34) L 02/07/20 07:28 RDW 24.3 % (13.2-15.2) H 02/07/20 07:28 Plt Count 271 K/mm3 (140-440) 02/07/20 07:28 Add Manual Diff Complete 02/07/20 07:28 Total Counted 100 02/07/20 07:28 Seg Neutrophils % Sheet Cutter 02/06/20 10:54 Seg Neuts % (Manual) 87.0 % (40.0-70.0) H 02/07/20 07:28 Band Neutrophils % 0 % 02/07/20 07:28 Lymphocytes % (Manual) 11.0 % (13.4-35.0) L 02/07/20 07:28 Reactive Lymphs % (Man) 0 % 02/07/20 07:28 Monocytes % (Manual) 2.0 % (0.0-7.3) 02/07/20 07:28 Eosinophils % (Manual) 0 % (0.0-4.3) 02/07/20 07:28 Basophils % (Manual) 0 % (0.0-1.8) 02/07/20 07:28 Metamyelocytes % 0 % 02/07/20 07:28 Myelocytes % 0 % 02/07/20 07:28 Promyelocytes % 0 % 02/07/20 07:28 Blast Cells % 0 % 02/07/20 07:28 Nucleated RBC % Not Reportable 02/07/20 07:28 Seg Neutrophils # Man 6.4 K/mm3 (1.8-7.7) 02/07/20 07:28 Band Neutrophils # 0.0 K/mm3 02/07/20 07:28 Lymphocytes # (Manual) 0.8 K/mm3 (1.2-5.4) L 02/07/20 07:28 Abs React Lymphs (Man) 0.0 K/mm3 02/07/20 07:28 Monocytes # (Manual) 0.1 K/mm3 (0.0-0.8) 02/07/20 07:28 Eosinophils # (Manual) 0.0 K/mm3 (0.0-0.4) 02/07/20 07:28 Basophils # (Manual) 0.0 K/mm3 (0.0-0.1) 02/07/20 07:28 Metamyelocytes # 0.0 K/mm3 02/07/20 07:28 Myelocytes # 0.0 K/mm3 02/07/20 07:28 Promyelocytes # 0.0 K/mm3 02/07/20 07:28 Blast Cells # 0.0 K/mm3 02/07/20 07:28 WBC Morphology Not Reportable 02/07/20 07:28 Hypersegmented Neuts Not Reportable 02/07/20 07:28 Hyposegmented Neuts Not Reportable 02/07/20 07:28 Hypogranular Neuts Not Reportable 02/07/20 07:28 Smudge Cells Not Reportable 02/07/20 07:28 Toxic Granulation Not Reportable 02/07/20 07:28 Toxic Vacuolation Not Reportable 02/07/20 07:28 Dohle Bodies Not Reportable 02/07/20 07:28 Pelger-Huet Anomaly Not Reportable 02/07/20 07:28 Zakia Rods Not Reportable 02/07/20 07:28 Platelet Estimate Consistent w auto 02/07/20 07:28 Clumped Platelets Not Reportable 02/07/20 07:28 Plt Clumps, EDTA Not Reportable 02/07/20 07:28 Large Platelets Not Reportable 02/07/20 07:28 Giant Platelets Not Reportable 02/07/20 07:28 Platelet Satelliting Not Reportable 02/07/20 07:28 Plt Morphology Comment Not Reportable 02/07/20 07:28 RBC Morphology Not Reportable 02/07/20 07:28 Dimorphic RBCs Not Reportable 02/07/20 07:28 Polychromasia Not Reportable 02/07/20 07:28 Hypochromasia Few 02/07/20 07:28 Poikilocytosis Not Reportable 02/07/20 07:28 Anisocytosis 2+ 02/07/20 07:28 Microcytosis Few 02/07/20 07:28 Macrocytosis Not Reportable 02/07/20 07:28 Spherocytes Not Reportable 02/07/20 07:28 Pappenheimer Bodies Not Reportable 02/07/20 07:28 Sickle Cells Not Reportable 02/07/20 07:28 Target Cells Not Reportable 02/07/20 07:28 Tear Drop Cells Not Reportable 02/07/20 07:28 Ovalocytes Not Reportable 02/07/20 07:28 Helmet Cells Not Reportable 02/07/20 07:28 Bonilla-Lincoln Bodies Not Reportable 02/07/20 07:28 Ogden Rings Not Reportable 02/07/20 07:28 Timi Cells Not Reportable 02/07/20 07:28 Bite Cells Not Reportable 02/07/20 07:28 Crenated Cell Not Reportable 02/07/20 07:28 Elliptocytes Not Reportable 02/07/20 07:28 Acanthocytes (Spur) Not Reportable 02/07/20 07:28 Rouleaux Not Reportable 02/07/20 07:28 Hemoglobin C Crystals Not Reportable 02/07/20 07:28 Schistocytes Not Reportable 02/07/20 07:28 Malaria parasites Not Reportable 02/07/20 07:28 Yevgeniy Bodies Not Reportable 02/07/20 07:28 Hem Pathologist Commnt No 02/07/20 07:28 PT 14.8 Sec. (12.2-14.9) 02/06/20 13:51 INR 1.14 (0.87-1.13) H 02/06/20 13:51 APTT 31.9 Sec. (24.2-36.6) 02/06/20 13:51 Heparin Anti-Xa Level 0.20 U.I./ml (0.3-0.7) L 02/07/20 07:28 Sodium 137 mmol/L (137-145) 02/07/20 07:28 Potassium 4.0 mmol/L (3.6-5.0) D 02/07/20 07:28 Chloride 104.6 mmol/L (98-107) 02/07/20 07:28 Carbon Dioxide 22 mmol/L (22-30) 02/07/20 07:28 Anion Gap 14 mmol/L 02/07/20 07:28 BUN 19 mg/dL (9-20) 02/07/20 07:28 Creatinine 1.0 mg/dL (0.8-1.5) 02/07/20 07:28 Estimated GFR > 60 ml/min 02/07/20 07:28 BUN/Creatinine Ratio 19 % 02/07/20 07:28 Glucose 85 mg/dL (75-100) 02/07/20 07:28 Lactic Acid 0.80 mmol/L (0.7-2.0) 02/06/20 15:40 Calcium 8.0 mg/dL (8.4-10.2) L 02/07/20 07:28 Total Bilirubin 0.40 mg/dL (0.1-1.2) 02/07/20 07:28 AST 60 units/L (5-40) H 02/07/20 07:28 ALT 101 units/L (7-56) H 02/07/20 07:28 Alkaline Phosphatase 65 units/L (35-129) 02/07/20 07:28 Ammonia 41.0 umol/L (25-60) 02/06/20 10:54 Troponin T 0.022 ng/mL (0.00-0.029) 02/07/20 07:28 Total Protein 5.6 g/dL (6.3-8.2) L D 02/07/20 07:28 Albumin 3.0 g/dL (3.9-5) L 02/07/20 07: Albumin/Globulin Ratio 1.2 % 02/07/20 07:28 Triglycerides 40 mg/dL (2-149) 02/06/20 10:54 Cholesterol 184 mg/dL (50-199) 02/06/20 10:54 LDL Cholesterol Direct 105 mg/dL (50-130) 02/06/20 10:54 HDL Cholesterol 85 mg/dL (40-59) H 02/06/20 10:54 Cholesterol/HDL Ratio 2.16 % 02/06/20 10:54 Urine Color Yellow (Yellow) 02/06/20 14:47 Urine Turbidity Clear (Clear) 02/06/20 14:47 Urine pH 5.0 (5.0-7.0) 02/06/20 14:47 Ur Specific [place] 1.011 (1.003-1.030) 02/06/20 14:47 Urine Protein 30 mg/dl mg/dL (Negative) 02/06/20 14:47 Urine Glucose (UA) Neg mg/dL (Negative) 02/06/20 14:47 Urine Ketones Neg mg/dL (Negative) 02/06/20 14:47 Urine Blood Sm (Negative) 02/06/20 14:47 Urine Nitrite Neg (Negative) 02/06/20 14:47 Urine Bilirubin Neg (Negative) 02/06/20 14:47 Urine Urobilinogen < 2.0 mg/dL (<2.0) 02/06/20 14:47 Ur Leukocyte Esterase Neg (Negative) 02/06/20 14:47 Urine WBC (Auto) 3.0 /HPF (0.0-6.0) 02/06/20 14:47 Urine RBC (Auto) 2.0 /HPF (0.0-6.0) 02/06/20 14:47 U Epithel Cells (Auto) < 1.0 /HPF (0-13.0) 02/06/20 14:47 Urine Bacteria (Auto) 1+ /HPF (Negative) 02/06/20 14:47 Urine Mucus Few /HPF 02/06/20 14:47 Urine Sperm Few /HPF ([employer] CORERO[employer]) 02/06/20 14:47 Salicylates < 0.3 mg/dL (2.8-20.0) L 02/06/20 10:54 Urine Opiates Screen Presumptive negative 02/06/20 14:47 Urine Methadone Screen Presumptive negative 02/06/20 14:47 Acetaminophen < 5.0 ug/mL (10.0-30.0) L 02/06/20 10:54 Ur Barbiturates Screen Presumptive negative 02/06/20 14:47 Ur Phencyclidine Scrn Presumptive negative 02/06/20 14:47 Ur Amphetamines Screen Presumptive negative 02/06/20 14:47 U Benzodiazepines Scrn Presumptive negative 02/06/20 14:47 Urine Cocaine Screen Presumptive positive 02/06/20 14:47 U Marijuana (THC) Screen Presumptive negative 02/06/20 14:47 Drugs of Abuse Note Disclamer 02/06/20 14:47 Plasma/Serum Alcohol < 0.01 % (0-0.07) 02/06/20 10:54 Microbiology: Microbiology 02/06/20 Unknown Peripheral/Venous Blood Culture - Preliminary Culture in Progress 02/06/20 Unknown Peripheral/Venous Blood Culture - Preliminary Culture in Progress - Diagnostic Impressions Diagnostic Impressions: Echocardiogram 02/06/20 14:59 Transthoracic Echocardiogram Indication: NSTEMI BP: 83/53 HR: 61 Conclusions *Global left ventricular systolic function is normal. *The estimated ejection fraction is 50-55%. *Abnormal left ventricular diastolic filling is observed, consistent with impaired relaxation. *The right ventricular global systolic function is normal. *The aortic valve is trileaflet. The leaflets are thin with normal excursion. There is no aortic stenosis or regurgitation present. *There is no evidence of mitral regurgitation. *There is trace tricuspid regurgitation. *The right ventricular systolic pressure is calculated at 38 mmHg. *There is trace pulmonic regurgitation. Findings Left Ventricle: The left ventricular chamber size is normal. There is no left ventricular hypertrophy. Global left ventricular wall motion and contractility are within normal limits. Global left ventricular systolic function is normal. The estimated ejection fraction is 50-55%. Abnormal left ventricular diastolic filling is observed, consistent with impaired relaxation. Left Atrium: The left atrial chamber size is normal. Right Ventricle: The right ventricular cavity size is normal. The right ventricular global systolic function is normal. Right Atrium: The right atrial cavity size is normal. Aortic Valve: The aortic valve is trileaflet. The leaflets are thin with normal excursion. There is no aortic stenosis or regurgitation present. The aortic valve structure is normal. Mitral Valve: The mitral valve leaflets appear normal. There is no evidence of mitral regurgitation. There is no evidence of mitral stenosis. Tricuspid Valve: The tricuspid valve leaflets are normal. There is trace tricuspid regurgitation. The right ventricular systolic pressure is calculated at 38 mmHg. Pulmonic Valve: The pulmonic valve appears normal. There is trace pulmonic regurgitation. Pericardium: The pericardium appears normal. Aorta: The aorta appears normal. Venous: The inferior vena cava appears normal. Measurements Chambers 2D Name Value Normal Range IVSd (2D) 1 cm (0.6 - 1.1) LVPWd (2D) 1.01 cm (0.6 - 1.1) LVIDd (2D) 4.81 cm (3.7 - 5.6) LVIDs (2D) 3.23 cm (2 - 3.8) LV FS (2D) 32.8 % - EF Teichholz (2D) 61.15 % - Ao root diameter (2D) 3.3 cm (2 - 3.7) Volumes/Mass Name Value Normal Range LA ESV SP 4CH (A/L) 40.08 ml - LA ESV SP 2CH (A/L) 60.86 ml - LA ESV BP (A/L) 51.3 ml - LA ESV BP (A/L) index 26.44 ml/m2 - LA ESV SP 4CH (MOD) 33.61 ml - LA ESV SP 2CH (MOD) 58.35 ml - LA ESV BP (MOD) 45.8 ml - LA ESV BP (MOD) index 23.61 ml/m2 - Diastolic/Systolic Function Name Value Normal Range MV E-wave Vmax 0.63 m/sec - MV deceleration time 205.13 msec - MV A-wave Vmax 0.46 m/sec - MV E:A ratio 1.36 ratio - Aortic Valve Name Value Normal Range AV Vmax 1.55 m/sec - AV VTI 27.92 cm - AV peak gradient 9.58 mmHg - AV mean gradient 5.14 mmHg - LVOT diameter 2.09 cm - LVOT Vmax 1.01 m/sec - LVOT VTI 20.74 cm - LVOT peak gradient 4.11 mmHg - LVOT mean gradient 2.3 mmHg - SV LVOT 70.97 ml - NIKOLAS (continuity Vmax) 2.24 cm2 - NIKOLAS (continuity VTI) 2.54 cm2 - Tricuspid Valve Name Value Normal Range TR Vmax 2.97 m/sec - TR peak gradient 35 mmHg - RAP 3 mmHg - RVSP 38 mmHg - IVC diameter 2.17 cm (1.2 - 2.3) Pulmonic Valve/Qp:Qs Name Value Normal Range PV Vmax 0.76 m/sec - PV peak gradient 2.29 mmHg - KS end-diastolic Vmax 1.22 m/sec - PV acceleration time 83.73 msec - Sanchez/IV: Voiding Method Condom Catheter IV Catheter Type [Left Forearm Peripheral IV ] Active Medications - Current Medications Current Medications: Generic Name Dose Route Start Last Admin Trade Name Freq PRN Reason Stop Dose Admin Acetaminophen 650 mg 02/06/20 22:59 Tylenol PO Q4H PRN Pain MILD(1-3)/Fever >100.5/MURRAY Famotidine 20 mg 02/07/20 10:00 02/07/20 10:48 Pepcid IV 20 mg BID ROBERTO Administration Heparin Sodium/Sodium Chloride 25,000 unit in 500 mls @ 18 mls/hr 02/06/20 15:00 02/07/20 10:45 Heparin/ 0.45% Nacl-25,000 Unit/500 Ml IV 1,000 units/hr TITRATE ROBERTO 20 mls/hr Administration Protocol 900 UNITS/HR Dextrose/Sodium Chloride 1,000 mls @ 125 mls/hr 02/06/20 23:00 02/07/20 03:09 D5ns IV 125 mls/hr DIRECT ROBERTO Administration Cefepime HCl 2 gm in 100 mls @ 200 mls/hr 02/07/20 10:00 02/07/20 10:54 Cefepime/Ns 2 Gm/100 Ml IV 200 mls/hr Q12HR ROBERTO Administration Vancomycin HCl 1 gm in 250 mls @ 166.667 mls/hr 02/07/20 22:00 Vancomycin/Ns 1 Gm/250 Ml IV Q12H ROBERTO Lorazepam 1 mg 02/06/20 23:00 Ativan IV Q1H PRN CIWA-Ar 8-15 Lorazepam 2 mg 02/06/20 23:00 Ativan IV Q1H PRN CIWA-Ar 16-25 Metoclopramide HCl 10 mg 02/06/20 22:59 Reglan IV Q6H PRN Nausea And Vomiting Ondansetron HCl 4 mg 02/06/20 22:59 Zofran IV Q8H PRN Nausea And Vomiting Sodium Chloride 10 ml 02/07/20 10:00 02/07/20 11:42 Sodium Chloride Flush Syringe 10 Ml IV 10 ml BID ROBERTO Administration Sodium Chloride 10 ml 02/06/20 22:59 Sodium Chloride Flush Syringe 10 Ml IV PRN PRN LINE FLUSH
--- NOTE | 2020-02-07 13:49 | Consultation ---
History of Present Illness - Reason for Consult Consult date: 02/07/20 Reason for consult: Psych eval Requesting physician: ADAM CERRATO - Chief Complaint Chief complaint: "I am ok" - History of Present Psychiatric Illness Patient is a 54yo single employed [employer] with no psychiatric history. He was admitted with AMS. UDS was positive for Cocaine. Psychiatry consulted to evaluate patient and recommend disposition. In my interview with the patient he admits to using Cocaine and denies abusing other substances. He describes a good and stable mood, denies being depressed or excessively nervous. Patient eats and sleeps well. Patient denies panic attacks, recurrent nightmares or flashbacks. Patient denies symptoms suggestive of OCD or PTSD. Patient denies hallucinations, paranoia, thought interference and no features suggestive of hypomania or paradise. He completely denies suicidal or homicidal thoughts. PAST PSYCHIATRIC HISTORY: Patient denies Family Psychiatric History None reported or documented SOCIAL HISTORY Marital Status: Single Living Arrangements: Alone Employment Status: employed Access to guns/weapons: Patient denies Education: High school History of Abuse: Patient denies Legal History: Patient denies ROS: Constitutional: Negative for weight loss ENT: Negative for stridor Respiratory: Negative for cough or hemoptysis All other systems reviewed and are negative MENTAL STATUS General Appearance and Behavior: age appropriate, good eye contact, cooperative with questioning and polite Cooperation: Cooperative Psychomotor Behavior: within normal limits Mood: OK Affect and affective range: Congruent with stated mood Thought Process: Fluent/Logical and Goal-directed Thought Content: Within reality Speech: Normal volume and Regular rate and rhythm Intellectual Functioning Average Suicidal Ideation: Denies SI Homicidal Ideation: Denies HI Impulse Control: intact Insight and Judgment: normal insight and judgment Memory: Normal Attention: Normal Orientation: alert and oriented Diagnosis: Cocaine use disorder RECOMMENDATIONS MEDICATIONS: None indicated at this time PSYCHOTHERAPY: Supportive psychotherapy provided MEDICAL: Per primary team DELIRIUM PRECAUTIONS: n/a 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 Medications and Allergies Allergies Allergy/AdvReac Type Severity Reaction Status Date / Time No Known Allergies Allergy Verified 02/06/20 14:12 Home Medications Medication Instructions Recorded Confirmed Last Taken Type No Known Home Medications [No 02/07/20 02/07/20 Unknown History Reported Home Medications] Active Meds: Active Medications Acetaminophen (Tylenol) 650 mg PO Q4H PRN PRN Reason: Pain MILD(1-3)/Fever >100.5/MURRAY Famotidine (Pepcid) 20 mg IV BID [facility] Last Admin: 02/07/20 10:48 Dose: 20 mg Documented by: Heparin Sodium/Sodium Chloride (Heparin/ 0.45% Nacl-25,000 Unit/500 Ml) 25,000 unit in 500 mls @ 18 mls/hr IV TITRATE ROBERTO; Protocol Last Admin: 02/07/20 10:45 Dose: 1,000 units/hr, 20 mls/hr Documented by: Dextrose/Sodium Chloride (D5ns) 1,000 mls @ 125 mls/hr IV DIRECT [facility] Last Admin: 02/07/20 03:09 Dose: 125 mls/hr Documented by: Cefepime HCl (Cefepime/Ns 2 Gm/100 Ml) 2 gm in 100 mls @ 200 mls/hr IV Q12HR [facility] Last Admin: 02/07/20 10:54 Dose: 200 mls/hr Documented by: Vancomycin HCl (Vancomycin/Ns 1 Gm/250 Ml) 1 gm in 250 mls @ 166.667 mls/hr IV Q12H ROBERTO Lorazepam (Ativan) 1 mg IV Q1H PRN PRN Reason: CIWA-Ar 8-15 Lorazepam (Ativan) 2 mg IV Q1H PRN PRN Reason: CIWA-Ar 16-25 Metoclopramide HCl (Reglan) 10 mg IV Q6H PRN PRN Reason: Nausea And Vomiting Ondansetron HCl (Zofran) 4 mg IV Q8H PRN PRN Reason: Nausea And Vomiting Sodium Chloride (Sodium Chloride Flush Syringe 10 Ml) 10 ml IV BID [facility] Last Admin: 02/07/20 11:42 Dose: 10 ml Documented by: Sodium Chloride (Sodium Chloride Flush Syringe 10 Ml) 10 ml IV PRN PRN PRN Reason: LINE FLUSH Mental Status Exam - Vital signs Last Vital Signs Temp 98.7 F 02/07/20 11:02 Pulse 63 02/07/20 11:02 Resp 16 02/07/20 11:02 BP 97/63 02/07/20 11:02 Pulse Ox 92 02/07/20 11:02 Results Result Diagrams: 02/07/20 07:28 02/07/20 07:28 Abnormal lab results 02/06/20 02/06/20 02/06/20 Range/Units 13:17 13:51 13:51 Hgb 10.9 L (11.8-15.2) gm/dl Hct 34.6 L (35.5-45.6) % MCH (28-32) pg MCHC (32-34) % RDW (13.2-15.2) % Seg Neuts % (Manual) (40.0-70.0) % Lymphocytes % (Manual) (13.4-35.0) % Lymphocytes # (Manual) (1.2-5.4) K/mm3 INR 1.14 H (0.87-1.13) Heparin Anti-Xa Level (0.3-0.7) U.I./ml Calcium (8.4-10.2) mg/dL AST (5-40) units/L ALT (7-56) units/L Troponin T 0.175 H* (0.00-0.029) ng/mL Total Protein (6.3-8.2) g/dL Albumin (3.9-5) g/dL 02/06/20 02/07/20 02/07/20 Range/Units 23:24 07:28 07:28 Hgb 10.5 L (11.8-15.2) gm/dl Hct 33.5 L (35.5-45.6) % MCH 27 L (28-32) pg MCHC 31 L (32-34) % RDW 24.3 H (13.2-15.2) % Seg Neuts % (Manual) 87.0 H (40.0-70.0) % Lymphocytes % (Manual) 11.0 L (13.4-35.0) % Lymphocytes # (Manual) 0.8 L (1.2-5.4) K/mm3 INR (0.87-1.13) Heparin Anti-Xa Level 0.15 L (0.3-0.7) U.I./ml Calcium 8.0 L (8.4-10.2) mg/dL AST 60 H (5-40) units/L ALT 101 H (7-56) units/L Troponin T (0.00-0.029) ng/mL Total Protein 5.6 L D (6.3-8.2) g/dL Albumin 3.0 L (3.9-5) g/dL 02/07/20 Range/Units 07:28 Hgb (11.8-15.2) gm/dl Hct (35.5-45.6) % MCH (28-32) pg MCHC (32-34) % RDW (13.2-15.2) % Seg Neuts % (Manual) (40.0-70.0) % Lymphocytes % (Manual) (13.4-35.0) % Lymphocytes # (Manual) (1.2-5.4) K/mm3 INR (0.87-1.13) Heparin Anti-Xa Level 0.20 L (0.3-0.7) U.I./ml Calcium (8.4-10.2) mg/dL AST (5-40) units/L ALT (7-56) units/L Troponin T (0.00-0.029) ng/mL Total Protein (6.3-8.2) g/dL Albumin (3.9-5) g/dL All other labs normal.
[2020-02-07] MEDS: VANCOMYCIN/NS 1 GM/250 ML 1 GM/250 ML BAG IV SCH (21:37)
[2020-02-08] MEDS: D5W/0.9% NACL 1,000 ML IV SCH (06:24)
[2020-02-08] MEDS ORDERED: REGADENOSON 0.4 MG/5 ML INJ IV ONE (07:58)
[2020-02-08 09:59] VITALS: BP 140/97
[2020-02-08 10:21] LABS: Hematocrit 37.7 % (35.5-45.6); Hemoglobin 12.8 gm/dl (11.8-15.2); Mean Corpuscular HGB Conc 34 % (32-34); Mean Corpuscular Volume 95 fl (84-94); Platelet Count 162 K/mm3 (140-440); Red Blood Count 3.98 M/mm3 (3.65-5.03); Red Cell Distribution Width 13.2 % (13.2-15.2)
--- NOTE | 2020-02-08 10:34 | Progress Note ---
Assessment and Plan no further cp stress mpi this am negative for ischemia/infarct w/ nl lv fxn stable cv status cont baby asa - Patient Problems (1) Altered mental status Current Visit: Yes Status: Acute (2) Aspiration pneumonia Current Visit: Yes Status: Acute (3) Cocaine use Current Visit: Yes Status: Acute (4) Encephalopathy acute Current Visit: Yes Status: Acute (5) Hyperkalemia Current Visit: Yes Status: Acute (6) Illicit drug use Current Visit: Yes Status: Acute (7) Lactic acidosis Current Visit: Yes Status: Acute (8) Narcotic-induced respiratory depression Current Visit: Yes Status: Acute (9) Transaminitis Current Visit: Yes Status: Acute (10) Cocaine dependence Current Visit: Yes Status: Chronic Qualifiers: Substance use status: with intoxication (11) History of gastric ulcer Current Visit: Yes Status: Chronic Subjective Principal diagnosis: AMS; NSTEMI Interval history: no complaints no cp/sob Objective Vital Signs Temp Pulse Resp BP Pulse Ox 02/08/20 09:27 140/97 02/08/20 09:26 151/96 02/08/20 09:23 145/93 02/08/20 09:21 126/80 02/08/20 09:20 142/95 02/08/20 08:43 144/96 02/08/20 04:10 98.0 F 55 L 18 127/88 95 02/08/20 00:00 18 02/07/20 23:20 98.4 F 72 18 131/75 92 02/07/20 23:00 71 02/07/20 17:02 99.0 F 68 17 110/70 92 02/07/20 15:44 92 02/07/20 11:02 98.7 F 63 16 97/63 92 - Physical Examination General: No Apparent Distress HEENT: Positive: PERRL, Normocephaly, Mucus Membranes Moist Neck: Positive: neck supple, trachea midline Neuro: Positive: Grossly Intact Abdomen: Negative: Tender Skin: Negative: Rash Musculoskeletal: No Pain Extremities: Absent: edema - Labs and Meds CBC 02/08/20 Range/Units 09:21 WBC 6.5 (4.5-11.0) K/mm3 RBC 3.98 (3.65-5.03) M/mm3 Hgb 12.8 (11.8-15.2) gm/dl Hct 37.7 (35.5-45.6) % Plt Count 162 (140-440) K/mm3 - Imaging and Cardiology EKG: report reviewed Echo: pending - EKG Sinus rhythms and dysrhythmias: sinus rhythm
[2020-02-08 10:38] LABS: BUN/Creatinine Ratio 21; Blood Urea Nitrogen 21 mg/dL (9-20); Calcium 8.4 mg/dL (8.4-10.2); Hemolysis Index 16
--- NOTE | 2020-02-08 10:49 | Treadmill Report ---
NUCLEAR STRESS TEST DATE OF SERVICE: 02/08/20 PROTOCOL: The patient was brought to the stress lab in a postoperative state, given 10 mCi of technetium 99m at rest. The patient underwent rest imaging. The patient underwent Lexiscan stress test. At peak stress, patient was given 26 mCi of technetium 99m. Shortly thereafter, the patient underwent stress imaging. Raw imaging reveals mild GI artifact, no significant motion artifact. SPECT images examined carefully in horizontal long axis, vertical long axis, short axis views. There is normal homogenous uptake of radioisotope in all reported segments. No evidence of significant fixed or reversible perfusion defects suggestive of prior infarction or ischemia. Gated wall motion reveals normal systolic thickening, calculated ejection fraction of 50%, no TID. CONCLUSIONS: 1. Normal myocardial perfusion scan without evidence of active ischemia or prior infarction. 2. Normal left ventricular systolic performance, with a calculated ejection fraction of 50% without evidence of transient ischemic dilatation or stress-induced segmental wall motion abnormalities. JOB# [id number] LACY/MICHELA
[2020-02-08] MEDS: FAMOTIDINE 20 MG/2 ML INJ IV SCH (11:20)
[2020-02-08] MEDS: CEFEPIME/NS 2 GM/100 ML 2 GM/100 ML BAG IV SCH (11:23)
[2020-02-08] MEDS ORDERED: HEPARIN 10,000 UNITS/10 ML VIAL IV ONE (11:29)
[2020-02-08] MEDS: HEPARIN/ 0.45% NACL DRIP 25,000 UNIT/500 ML BAG IV SCH (11:43)
[2020-02-08] MEDS: VANCOMYCIN/NS 1 GM/250 ML 1 GM/250 ML BAG IV SCH (11:50)
--- NOTE | 2020-02-08 12:58 | Discharge Summary ---
Providers - Providers Date of Admission: 02/06/20 13:31 Date of discharge: 02/08/20 Attending physician: BHARATH FRITZ 02/06/20 14:33 Consult to Physician [CONS] Stat Comment: Consulting Provider: BRAD GREEN Physician Instructions: Reason For Exam: Elevated troponin, altered mental status 02/07/20 07:30 Consult to Mental Health [CONS] Routine Reason For Exam: cocaine dependence [facility] Condition: Fair Disposition: DC-01 TO HOME OR SELFCARE Core Measure Documentation - Palliative Care Palliative Care/ Comfort Measures: Not Applicable - Core Measures Any of the following diagnoses?: acute ID - Acute ID Discharge Requirements Aspirin at discharge: Yes HEATHER/ARB for LVSD if EF <40%: Not Applicable Beta len at discharge: No Reason for no beta len on DC: Medical contraindication (Cocaine use) Statin for LDL = or >100 mg/dl on DC: Yes Exam - Constitutional Vitals: Temp Pulse Resp BP Pulse Ox 98.0 F 55 L 18 140/97 95 02/08/20 04:10 02/08/20 04:10 02/08/20 04:10 02/08/20 09:27 02/08/20 04:10 Plan Activity: other (No strenous activity until cleared by Physician) Diet: low fat, low cholesterol, low salt Plan of Treatment: 1.Follow up with PCP in 1 week. 2.Follow up with Dr. Green 3.No strenous activity cleared by Physician 4.Avoid cocaine Follow up with: [facility] MD FRANCISCO [Primary Care Provider] - 3-5 Days Prescriptions: Aspirin EC [Halfprin EC] 81 mg PO QDAY #30 tablet levoFLOXacin [Levaquin] 750 mg PO QDAY #5 tablet Simvastatin 40 mg PO QHS #30 tablet
--- NOTE | 2020-02-08 13:02 | XRay Report ---
CHEST 1 VIEW INDICATION / CLINICAL INFORMATION: right lung opacity. COMPARISON: 02/06/2020 FINDINGS: SUPPORT DEVICES: None. HEART / MEDIASTINUM: No significant abnormality. LUNGS / PLEURA: Vague airspace disease in the left lower lung and in the mid right lung No pneumothor ax. ADDITIONAL FINDINGS: No significant additional findings. IMPRESSION: Vague airspace disease has developed in the left lower lung and in the right mid lung since 02/06/2020 . Signer Name: Rahul Dent MD FACR Signed: 02/08/2020 12:57 PM Workstation Name: [id number]
[2020-02-08] MEDS ORDERED: ASPIRIN EC 81 MG TAB PO SCH (14:00)
== END 2020-02-08 15:30 | disposition home or self-care (01) | DRG 871 ==
LOC: EDBD → ED 09:54 → 4A 13:31
PROVIDERS: ADMIT Internal Medicine; ATTEND Internal Medicine
DX: A41.9 Sepsis, unspecified organism (principal); I21.4 Non-ST elevation (NSTEMI) myocardial infarction; J69.0 Pneumonitis due to inhalation of food and vomit; G92 Toxic encephalopathy; E87.2 Acidosis; F14.229 Cocaine dependence with intoxication, unspecified; E87.6 Hypokalemia; T40.5X1A Poisoning by cocaine, accidental (unintentional), initial encounter; R74.0 Nonspecific elevation of levels of transaminase and lactic acid dehydrogenase [LDH]; Z71.89 Other specified counseling; Y92.098 Other place in other non-institutional residence as the place of occurrence of the external cause; Z87.11 Personal history of peptic ulcer disease
CPT/HCPCS: 36415; 70450; 71045; 78452; 80048; 80053; 80061; 80307; 80320; 81001; 82140; 84484; 85007; 85014; 85018; 85025; 85027; 85049; 85520; 85610; 85730; 87040; 87116; 93005; 93010; 93017; 93306; G0378; A9502; G0480; J0610; J0692; J1644; J2060; J2310; J2405; J2543; J2785; J3370; J7030; J7040; J7042